=== PATIENT | female | born 1930 | race Two or more races ===

== ENCOUNTER 2018-11-01 05:15 | Day surgery (SDC) | payer OTHER | END 2018-11-01 09:55 | disposition home or self-care (01) | LOC: AMB-ENDOS 05:15 | DX: D12.3 Benign neoplasm of transverse colon (principal); D12.8 Benign neoplasm of rectum ==

== ENCOUNTER 2018-11-01 15:46 | Inpatient (IN) | payer OTHER ==
[~2018-11-01] VITALS: Ht 147.3 cm; Wt 59.0 kg
[2018-11-18] MEDS ORDERED: VENLAFAXINE HCL75 M1 PO (16:16)
[2018-11-18] MEDS ORDERED: LOSARTAN POTAS100 MG PO (16:16)
[2018-11-18] MEDS ORDERED: SYNTHROID100 MCG PO (16:16)
[2018-11-18] MEDS ORDERED: LIPITOR40 MG PO (16:17)
[2018-11-18] MEDS ORDERED: NORVASC2.5 MG PO (16:17)
[2018-11-18] MEDS ORDERED: FOSAMAX70 MG PO (16:17)
[2018-11-18] MEDS ORDERED: NAMENDA10 MG PO (16:17)
[2018-11-18] MEDS ORDERED: TYLENOL ARTHRI650 MG PO (16:18)
[2018-12-03] MEDS ORDERED: TYLENOL EXTRA500 MG PO (15:10)
== END 2018-12-03 17:24 | disposition home or self-care (01) | DRG 331 ==
LOC: SURH 11-23 10:45 → O/R 11-30 06:00 → SURH 11-30 06:00
PROVIDERS: ADMIT Surgery
PROC: 07TB4ZZ Resection of Mesenteric Lymphatic, Percutaneous Endoscopic Approach (ICD-10-PCS; 2018-11-30)
PROC: 4A12X4Z Monitoring of Cardiac Electrical Activity, External Approach (ICD-10-PCS; 2018-11-30)
PROC: 0DTL4ZZ Resection of Transverse Colon, Percutaneous Endoscopic Approach (ICD-10-PCS; principal; 2018-11-30 08:30)
DX: C18.4 Malignant neoplasm of transverse colon (principal); R59.0 Localized enlarged lymph nodes; I11.9 Hypertensive heart disease without heart failure; E03.8 Other specified hypothyroidism; D50.0 Iron deficiency anemia secondary to blood loss (chronic); G30.8 Other Alzheimer's disease; F02.80 Dementia in other diseases classified elsewhere, unspecified severity, without behavioral disturbance, psychotic disturbance, mood disturbance, and anxiety; I34.0 Nonrheumatic mitral (valve) insufficiency

== ENCOUNTER 2018-11-05 07:30 | Outpatient (CLI) | payer OTHER | END 2018-11-05 07:33 | disposition home or self-care (01) | LOC: TOM 07:30 | DX: C18.5 Malignant neoplasm of splenic flexure (principal); R59.0 Localized enlarged lymph nodes; D50.8 Other iron deficiency anemias; K59.09 Other constipation ==

== ENCOUNTER 2019-12-19 07:35 | Day surgery (SDC) | payer OTHER ==
[~2019-12-19 07:35] MED LIST: FOSAMAX70 MG PO; LIPITOR40 MG PO; LOSARTAN POTAS100 MG PO; NAMENDA10 MG PO; NORVASC2.5 MG PO; SYNTHROID100 MCG PO; TYLENOL ARTHRI650 MG PO; TYLENOL EXTRA500 MG PO; VENLAFAXINE HCL75 M1 PO
== END 2019-12-19 12:01 | disposition home or self-care (01) ==
LOC: AMB-ENDOS 07:35 → ADM 14:15
PROVIDERS: ATTEND Surgery
DX: D12.3 Benign neoplasm of transverse colon (principal)